=== PATIENT | male | born 1985 | race Caucasian/White ===

== ENCOUNTER 2024-03-03 07:39 | Emergency (ER) | payer OTHER ==
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
[2024-03-03 13:12] VITALS: TEMP 98
[2024-03-03 13:13] VITALS: BP 123/79; O2SAT 100
== END 2024-03-03 09:52 | disposition home or self-care (01) ==
LOC: ER 07:39
DX: S00.31XA Abrasion of nose, initial encounter (principal); Y04.8XXA Assault by other bodily force, initial encounter
CPT/HCPCS: 70450; 72125; 96372; 99284